=== PATIENT | female | born 1995 | race Caucasian/White ===

== ENCOUNTER 2017-11-14 12:11 | Emergency (ER) | payer OTHER, SELFPAY ==
[2017-11-14 12:19] VITALS: BP 134/92; PULSE 91; RESP 15; TEMP 36.7; O2SAT 100; BMI 23.6
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
[2017-11-14 13:44] VITALS: BP 111/72; PULSE 84; RESP 16; O2SAT 96
== END 2017-11-14 13:47 | disposition home or self-care (01) ==
PROVIDERS: Emergency Provider Internal Medicine
DX: M77.8 Other enthesopathies, not elsewhere classified (principal)
CPT/HCPCS: 73110; 99282; 99283

== ENCOUNTER 2017-12-03 01:16 | Emergency (ER) | payer OTHER, SELFPAY ==
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
[2017-12-03 01:35] VITALS: BP 124/74; PULSE 72; RESP 16; TEMP 36.7; O2SAT 98; BMI 23.6
[2017-12-03 01:46] LABS: Bacteria Urine Few (2-10); RBC Urine 0-1/HPF (0-5/HPF); Squamous Epithelial Cell Urine 1-5 /HPF; WBC Urine 1-5/HPF (0-5/HPF)
[2017-12-03 01:47] LABS: Culture Indicated Urine Specimen Cultured
[2017-12-03 02:06] LABS: Add Manual Diff / Slide Review NO; Basophils Percent Auto 0.4 % (0-2); Eosinophils Percent Auto 1.3 % (2-4); Hematocrit 39.5 % (36-46); Hemoglobin 13.3 g/dL (12.0-16.0); Mean Corpuscular HGB Conc 33.8 % (30-36); Mean Corpuscular Hemoglobin 29.9 PG (26-34); Mean Corpuscular Volume 88.3 fL (80-100); Monocytes Percent Auto 9.2 % (3-14); Neutrophils Absolute Auto 6500 /uL (3000-5900); Neutrophils Percent Auto 70.1 % (50-75); Platelet Count 217 X10^3/uL (150-400); Red Blood Cell Count 4.47 X10^6/uL (4.0-5.2); White Blood Cell Count 9.3 X10^3/uL (4.5-11.0)
[2017-12-03 02:15] LABS: Alanine Aminotransferase 21 IU/L (9-52); Albumin 4.4 g/dL (3.5-5.0); Albumin Globulin Ratio 1.8 (1.0-2.8); Alkaline Phosphatase 69 U/L (38-126); Aspartate Aminotransferase 18 IU/L (14-36); BUN Creatinine Ratio 15.7 (6-22); Bilirubin Total 0.5 mg/dL (0.2-1.3); Blood Urea Nitrogen 11 mg/dL (7-17); Calcium 9.5 mg/dL (8.4-10.2); Carbon Dioxide 28 mmol/L (22-32); Chloride 104 mmol/L (98-107); Estimated Glomerular Filt Rate > 60.0 mL/min (>60); Globulin 2.5 g/dL (1.7-4.1); Glucose 101 mg/dL (70-100); HEMOLYSIS < 15 (0-50); Lipase 176 U/L (23-300); Potassium 3.5 mmol/L (3.4-5.1); Sodium 144 mmol/L (137-145); Total Protein 6.9 g/dL (6.3-8.2)
[2017-12-03] MEDS: ONDANSETRON 4 MG ODT PREPACK 1 BOTTLE MISC (02:44)
[2017-12-03 02:49] VITALS: BP 120/65; PULSE 70; RESP 16; TEMP 36.7; O2SAT 98
--- NOTE | 2017-12-21 11:12 | PC.NURSE ---
Patient called back regarding message left for her on 12/05/2017 regarding her urine results. Discussed results with Dr Leblanc. RX for metronidazole 500mg PO BID for 7 days to [facility] per patients request.
== END 2017-12-03 02:45 | disposition home or self-care (01) ==
PROVIDERS: Emergency Provider Emergency Medicine
DX: R10.9 Unspecified abdominal pain (principal)
CPT/HCPCS: 36591; 80053; 81003; 81015; 81025; 83690; 85025; 87077; 87086; 99282; 99283